=== PATIENT | male | born 1955 | race Caucasian/White ===

== ENCOUNTER 2025-06-07 08:43 | Emergency (ER) | payer MEDICARE, OTHER, SELFPAY ==
[2025-06-07 08:46] VITALS: BMI 28.0
[2025-06-07 08:47] VITALS: BP 124/78
[2025-06-07 09:00] VITALS: BP 117/84
--- NOTE | 2025-06-07 09:18 | ED.GENMED ---
History of Present Illness
General
Chief Complaint: Fall
Source: patient
Exam Limitations: none
Time Seen by Provider: 06/07/25 08:54
Nursing documentation reviewed up to this point in time: agreed with
History of Present Illness
History of Present Illness:
70-year-old male presenting to the emergency department after syncopal episode while at physical therapy. Had a right hip replacement 1 week ago. Claims he has been doing well in general went for a follow-up for physical therapy today and was
doing well he went to stand up after having his wound reassessed felt very lightheaded and passed out to the ground hitting his forehead. He claims that he had some degree of consciousness throughout but the event was a blur. The physical
therapist reported that it did not seem that he fully lost consciousness at the time. He denies any associated chest pain shortness of breath. Did have preceding lightheadedness and chills. Denies any similar symptoms in the past. Otherwise
feels well at this point other than some discomfort to his forehead.
Past History
Past History
ED Past Medical History: HTN
ED Past Surgical History: Orthopedic (right knee replacement)
Social History
Tobacco: Non-smoker
Alcohol: None
Drug: None
Personal:
Living: with family
Review of Systems
Review of Systems
Allergies reviewed?: Yes
All Other Systems: ROS reviewed and negative except as documented in HPI and ROS
Phy Exam
Physical Exam
Physical Exam:
GENERAL: Alert , in no apparent distress
EYE: pupils equal and reactive
NECK: Supple, no significant adenopathy.
ENT: o/p clr, mmm.
CARDIAC: Regular rate and rhythm .
LUNGS: Clear breath sounds bilaterally, no acute respiratory distress, no wheezes/rales/rhonchi
ABDOMEN: Soft, without focal tenderness, no r/g, no cvat
NEUROLOGICAL: Alert and oriented, no focal neuro deficits
SKIN: Warm and dry, skin intact.
MUSCULOSKELETAL: Surgical incision overlying the right hip appears to be well-healing, no significant warmth no purulent drainage no significant tenderness no edema, well perfused.
PSYCH: Normal and appropriate interaction.
Course
Orders/Labs/Results
Orders:
Orders
06/07/25 08:54
EKG [Electrocardiogram (*1)] Urgent
Reason for Study: Syncope
EKG- Treatment ONCE
06/07/25 09:00
Complete Blood Count/No Diff Urgent
Troponin I Urgent
06/07/25 09:05
CT Cervical Spine W/o Iv Contr Urgent
Comment:
Reason For Exam: fall head strike
CT Head W/o Iv Contrast Urgent
Comment:
Reason For Exam: fall hit head anterior, LOC
06/07/25 09:19
D-Dimer Urgent
06/07/25 10:24
Basic Metabolic Panel Urgent
06/07/25 10:52
CT Chest PE Study Urgent
Comment:
Reason For Exam: syncope, recent surgery
Abnormal Lab Results
06/07/25 06/07/25
09:19 10:24
D-Dimer 6.22 H ug/mlFEU
(0.00-0.50)
BUN 23 H mg/dl
(9-20)
Glucose 160 H mg/dl
(70-99)
06/07/25 09:00
06/07/25 10:24
MDM/Problems Addressed
MDM/Problems Addressed:
70-year-old male presenting to the emergency department today with concerns of a syncopal episode at physical therapy. Did hit his head as well. At this point is now asymptomatic. Syncopal episode was preceded by lightheadedness and chills but
otherwise denies any chest pain shortness of breath or palpitations. Here vital signs are normal EKG is normal. D-dimer elevated CT PE was then ordered that did not show any emergent findings. At this point no signs of emergent pathology
asymptomatic throughout ER stay stable for discharge at this time. Return precautions given.
*Pulse Oximetry
Patient hypoxic: no (99)
*Critical Care Note
Total Time (30-74mins, 75-104mins- exclusive of procedures): Not Applicable
ED Attending Note
-
Portions of this chart may have been created with voice recognition software.� Occasional wrong word or��sound alike� substitutions may have occurred due to the inherent limitations of voice recognition software.
Discharge Plan
Departure
Patient Disposition: Home (Routine Discharge)
Date of Disposition: 06/07/25
Time of Disposition: 14:27
Patient with high blood pressure during this ER visit?: No
Condition: Good
Covid-19: Not Applicable
Discharge Problem:
Syncope
Instructions: Syncope (fainting)
Prescriptions:
No Action
naproxen sodium [Aleve] 220 MG tablet
220 mg PO HS
glucosamine-chondroitin 1 EACH capsule
2 ea PO DAILY
ertapenem [Invanz] 1 G recon soln
1 g IV DAILY Qty: 28 0RF
Patient Comments:
last dose 07/18/17
multivitamin [Daily Multiple] 1 EACH tablet
1 ea PO DAILY
aspirin [Aspir-Low] 81 MG tablet,delayed release (DR/EC)
81 mg PO DAILY
Saccharomyces boulardii 250 MG capsule
250 mg PO BID
Referrals:
Virgilio Gloria PA-C [Family Provider]
Activity Restrictions/Additional Instructions:
You came to the emergency department today after syncopal episode. Here you have a reassuring assessment. Please follow closely with your primary care doctor. Return for any worsening, new or concerning symptoms.
Interventions
Interventions:
*Risk Screen - Suicide Last Done: 06/07/25 08:46
*General Assessment Last Done: 06/07/25 08:46
*Neglect/Abuse Screening Last Done: 06/07/25 08:46
*ED- Fall Risk Assessment Last Done: 06/07/25 08:46
*ED COVID-19 Vaccine History Last Done: 06/07/25 08:46
ED-Musculoskeletal Assessment Last Done: 06/07/25 09:21
ED- Neurological Assessment Last Done: 06/07/25 09:21
ED-Skin Assessment Last Done: 06/07/25 09:21
Discharge Date and Time
Print Language: CENTRAL AFRICAN
[2025-06-07 09:20] LABS: Hematocrit 42.2 % (39.0-52.0); Hemoglobin 14.7 g/dL (13.0-18.0); Mean Corp Hgb Conc. 34.8 g/dL (33.0-37.0); Mean Corpuscular Volume 85.3 fL (80.0-94.0); Platelet Count 207 10^3/uL (130-400); Red Cell Dist. Width 13.1 % (11.5-14.5)
[2025-06-07 10:00] VITALS: BP 122/74
[2025-06-07 10:13] LABS: D-Dimer 6.22 ug/mlFEU (0.00-0.50)
[2025-06-07 10:24] LABS: Troponin I < 0.012 ng/ml
[2025-06-07 11:05] LABS: Blood Urea Nitrogen 23 mg/dl (9-20); Calcium 8.8 mg/dl (8.4-10.2); Carbon Dioxide 29 mmol/L (22-30); Chloride 103 mmol/L (98-107); Estimated Creatinine Clearance 80 ml/min; Glucose 160 mg/dl (70-99); Potassium 5.0 mmol/L (3.5-5.1); Sodium 136 mmol/L (135-145); eGFR > 60.00
[2025-06-07 14:10] VITALS: BP 124/80
== END 2025-06-07 14:51 | disposition home or self-care (01) ==
LOC: EMR 08:43
PROVIDERS: Physician Assistant; EMERGENCY PHYSICIAN Student in an Organized Health Care Education/Training Program; FAMILY PHYSICIAN Physician Assistant Medical
DX: R55 Syncope and collapse (principal); I10 Essential (primary) hypertension; Z96.641 Presence of right artificial hip joint; Z96.651 Presence of right artificial knee joint
CPT/HCPCS: 99284; 70450; 71275; 72125; 80048; 84484; 85027; 85379; 93005; Q9967